=== PATIENT | female | born 1965 ===

== ENCOUNTER 2017-07-01 10:54 | Observation (INO) | payer MEDICARE, OTHER ==
[2017-07-01] MEDS ORDERED: Albuterol-Ipratrop 3 mg / 0.5 (3 ml) UD INH STA (11:39)
[2017-07-01] MEDS ORDERED: Albuterol-Ipratrop 3 mg / 0.5 (3 ml) UD ONE (11:50)
--- NOTE | 2017-07-01 12:05 | C.PDOC ---
History Of Present Illness 51 year old female with Hx of asthma presents to the ED c/o dry cough with sweats and post tussive chest discomfort and back pain for the past week. Patient reports she was been hospitalized in the past because of her asthma. Patient denies fever, nausea, vomit, dizziness, weakness, numbness. Chief Complaint (Nursing): Shortness Of Breath History Per: Patient History/Exam Limitations: no limitations Onset/Duration Of Symptoms: Days Current Symptoms Are (Timing): Still Present Quality: Tightness Exacerbating Factor(s): Coughing Associated Symptoms: Sweating, Chest Pain, Other (Dry cough). denies: Fever, Ankle/Leg Swelling, Dizziness Recent travel outside of the [place]: No Additional History Per: Patient Past Medical History Reviewed: Historical Data, Nursing Documentation, Vital Signs Vital Signs: Last Vital Signs Temp 98 F 07/01/17 15:00 Pulse 108 H 07/01/17 15:00 Resp 20 07/01/17 16:42 BP 114/73 07/01/17 15:00 Pulse Ox 95 07/01/17 16:42 - Medical History PMH: Asthma, Diabetes, Hypercholesterolemia Surgical History: Cholecystectomy Family History: States: Unknown Family Hx - Social History Hx Tobacco Use: No Hx Alcohol Use: Yes Hx Substance Use: No - Immunization History Hx Tetanus Toxoid Vaccination: No Hx Influenza Vaccination: No Hx Pneumococcal Vaccination: No Review Of Systems Constitutional: Positive for: Sweats. Negative for: Fever Cardiovascular: Positive for: Chest Pain (Post tussive). Negative for: Palpitations Respiratory: Positive for: Cough (Dry) Gastrointestinal: Negative for: Nausea, Vomiting, Abdominal Pain Musculoskeletal: Positive for: Back Pain (Post tussive) Skin: Negative for: Rash Neurological: Negative for: Weakness, Numbness Physical Exam - Physical Exam Appears: Non-toxic, No Acute Distress Skin: Normal Color, Warm, Dry Head: Atraumatic, Normacephalic Oral Mucosa: Moist Neck: Normal ROM, Supple Chest: Symmetrical Cardiovascular: Rhythm Regular, No Murmur Respiratory: No Rales, No Rhonchi, Wheezing (B/L expiratory) Gastrointestinal/Abdominal: Soft, No Tenderness Extremity: Normal ROM, No Pedal Edema, No Calf Tenderness, No Swelling Neurological/Psych: Oriented x3, Normal Speech, Normal Cognition Gait: Steady ED Course And Treatment - Laboratory Results Result Diagrams: 07/01/17 12:15 12/05/17 12:15 ECG: Interpreted By Me, Viewed By Me ECG Rhythm: Sinus Tachycardia Interpretation Of ECG: EKG sinus tachycardia at 108 with normal axis, normal rhythm Rate From EC O2 Sat by Pulse Oximetry: 100 (On RA) Pulse Ox Interpretation: Normal - Radiology CXR: Interpreted by Me, Viewed By Me CXR Interpretation: Yes: No Acute Disease. No: Infiltrates Medical Decision Making Medical Decision Making: Plan: * Blood work ordered * EKG, CXR ordered * albuterol 3 ml INH given * Solumedrol 125 mg IVP given * Blood culture collected * Nebulizer treatment On reevaluation pt states not feeling well, still wheezing B/L, will be admitted to the floor. Spoke with hospitalist c python developer, Dr. Piña for consultation regarding the case and will come down to check on pt for possible admission. Disposition - Disposition Disposition: HOSPITALIZED Disposition Time: 13:30 Condition: STABLE - Clinical Impression Clinical Impression: Asthma exacerbation - Scribe Statement The provider has reviewed the documentation as recorded by the Scribe Chi Bell All medical record entries made by the Scribe were at my direction and personally dictated by me. I have reviewed the chart and agree that the record accurately reflects my personal performance of the history, physical exam, medical decision making, and the department course for this patient. I have also personally directed, reviewed, and agree with the discharge instructions and disposition.
--- NOTE | 2017-07-01 12:15 | RAD ---
HISTORY: r/o infiltrate COMPARISON: 01/12/2016 FINDINGS: LUNGS: No active pulmonary disease. PLEURA: No significant pleural effusion identified, no pneumothorax apparent. CARDIOVASCULAR: Normal. OSSEOUS STRUCTURES: Minimal thoracic spondylosis. Minimal bilateral shoulder arthrosis Cartilaginous junctional hypertrophic changes -1st rib VISUALIZED UPPER ABDOMEN: Normal. OTHER FINDINGS: None. IMPRESSION: No active disease.
[2017-07-01 12:21] LABS: BASO % 0.4 % (0.0-2.0); EOS # 0.5 K/uL (0.0-0.7); EOS % 6.6 % (0.0-4.0); HEMATOCRIT 42.2 % (34.0-47.0); LYMPH # 2.3 K/uL (1.0-4.3); LYMPH % 30.7 % (20.0-40.0); MEAN CELL VOLUME 90.5 fL (81.0-99.0); MEAN CORPUSCULAR HEMOGLOBIN 30.8 pg (27.0-31.0); MEAN CORPUSCULAR HGB CONC 34.1 g/dL (33.0-37.0); MEAN PLATELET VOLUME 8.7 fL (7.2-11.7); MONO # 0.4 K/uL (0.0-0.8); MONO % 5.5 % (0.0-10.0); NRBC % 0.1 % (0.0-2.0); RED CELL DISTRIBUTION WIDTH 12.2 % (11.5-14.5); WHITE BLOOD COUNT 7.6 K/uL (4.8-10.8)
[2017-07-01] MEDS ORDERED: Magnesium Sulfate 1 gm in D5W 1 GM/100 ML BAG IVPB ONE ×2 (12:23→13:04)
[2017-07-01] MEDS: Magnesium Sulfate 1 gm in D5W 1 GM/100 ML BAG IVPB SCH ×4 (12:26→17:54)
[2017-07-01 12:35] LABS: ALB/GLOB RATIO 1.3 (1.0-2.1); ALKALINE PHOSPHATASE 267 U/L (38-126); ALT/SGPT 42 U/L (9-52); AST/SGOT 19 U/L (14-36); BILIRUBIN,TOTAL 0.4 mg/dL (0.2-1.3); BLOOD UREA NITROGEN 12 mg/dL (7-17); CALCIUM 8.4 mg/dl (8.6-10.4); CARBON DIOXIDE 27 mmol/L (22-30); CHLORIDE 103 mmol/L (98-107); GFR AFRICAN-AMERICAN > 60; GLUCOSE,RANDOM 398 mg/dL (65-105); POTASSIUM 3.8 mmol/L (3.6-5.2); SODIUM 139 mmol/L (132-148); TOTAL PROTEIN 6.8 g/dL (6.3-8.3)
[2017-07-01] MEDS ORDERED: Albuterol 0.083% Inhal Sol (2.5 mg/3 mL) UD INH STA (13:08)
[2017-07-01] MEDS ORDERED: Albuterol 0.083% Inhal Sol (2.5 mg/3 mL) UD ONE (13:15)
[2017-07-01] MEDS ORDERED: Glucagon Recombinant 1 mg Inj IM PRN (14:30)
[2017-07-01] MEDS ORDERED: Dextrose 50% SYRINGE Inj (50 ml) IV PRN (14:30)
--- NOTE | 2017-07-01 15:01 | CP.PCM.HP ---
<Camilo Rosas - Last Filed: 07/01/17 15:02> History of Present Illness - History of Present Illness History of Present Illness: Admission Note for Medicine for Dr. Piña Hospitalist Service--Camilo Rosas PGY2--All management as per Dr. Piña CC: SOB This patient is a 51yo F w/ a PMhx of Moderate Persistant Asthma, and DM on Insulin w/ previous A1C she states was "around 11", who is coming in for SOB for 1 week time. She states she is compliant with all of her medicines, but she would previously take 40mg PO prednisone when she "feels a flare" and had run out of his medication for the past month. Patient states she has a lot of stress at home, and the change in weather as well seems to have exacerbated her symptoms. She denies smoking. Denies pets in the house or other recent allergens. Has never been intubated; this past year this is her first admission for asthma but does frequently come to the ER with SOB and is sent home. She admits to some chills and phlegm at home, that is exacerbated by a deep breath for which she has not found relief from. Denies fevers, CP, abdominal pain, N/V/ D, dysuria/freq/urg or lower extremity pain/weakness/swelling. PMhx: As above Surgeries: Gallbladder removal Allergies: Denies Meds: Advair 250, Crestor 20mg, Glipizide 5, Lantus 40 at night, Metformin 500 BID, Proventil PRN, Prednisone 40mg whenever she feels like it FamHx: throat cancer mom and aunt (both heavy smokers), HTN, DM, CAD/[place] in 60's leading to Social: Denies smoking/drinking/illicit drug use, ambulates by self without cane , works multimedia technician, independent in all IADL and ADL Present on Admission - Present on Admission Any Indicators Present on Admission: No History of DVT/PE: No History of Uncontrolled Diabetes: Yes Urinary Catheter: No Decubitus Ulcer Present: No Review of Systems - Constitutional Constitutional: As Per HPI - EENT Eyes: As Per HPI Ears: As Per HPI - Breasts Breasts: As Per HPI - Cardiovascular Cardiovascular: As Per HPI - Respiratory Respiratory: As Per HPI - Gastrointestinal Gastrointestinal: As Per HPI - Genitourinary Genitourinary: As Per HPI Past Patient History - Infectious Disease Hx of Infectious Diseases: None - Tetanus Immunizations Tetanus Immunization: Unknown - Past Medical History & Family History Past Medical History?: Yes Past Family History: Reviewed and not pertinent - Past Social History Smoking Status: Never Smoked - CARDIAC Hx Hypercholesterolemia: Yes - PULMONARY Hx Asthma: Yes - ENDOCRINE/METABOLIC Hx Diabetes Mellitus Type 1: Yes - PSYCHIATRIC Hx Substance Use: No - SURGICAL HISTORY Hx Cholecystectomy: Yes - ANESTHESIA Hx Anesthesia: Yes Hx Anesthesia Reactions: No Hx Malignant Hyperthermia: No Meds Allergies/Adverse Reactions: Allergies Allergy/AdvReac Type Severity Reaction Status Date / Time No Known Allergies Allergy Verified 10/14/14 10:55 Physical Exam - Constitutional Appears: Well, Non-toxic - Head Exam Head Exam: ATRAUMATIC - Eye Exam Eye Exam: EOMI - ENT Exam ENT Exam: Mucous Membranes Moist - Neck Exam Neck exam: Positive for: Full Rom, Normal Inspection. Negative for: Lymphadenopathy - Respiratory Exam Respiratory Exam: Accessory Muscle Use, Wheezes, NORMAL BREATHING PATTERN. absent: Chest Wall Tenderness, Decreased Breath Sounds, Clear to Auscultation Bilateral, Prolonged Expiratory Phase, Respiratory Distress, Stridor - Cardiovascular Exam Cardiovascular Exam: Tachycardia, +S1, +S2. absent: REGULAR RHYTHM, Rubs, +S4, Systolic Murmur - GI/Abdominal Exam GI & Abdominal Exam: Normal Bowel Sounds, Soft. absent: Tenderness - Extremities Exam Extremities exam: Positive for: full ROM. Negative for: calf tenderness, pedal edema, tenderness - Back Exam Back exam: NORMAL INSPECTION. absent: CVA tenderness (L), CVA tenderness (R) - Neurological Exam Neurological exam: Alert, CN II-XII Intact (speaking in full sentences not short of breath during speech), Normal Gait, Oriented x3, Reflexes Normal - Psychiatric Exam Psychiatric exam: Normal Affect - Skin Skin Exam: Warm Results - Vital Signs Recent Vital Signs: Last Vital Signs Temp 98.6 F 07/01/17 14:36 Pulse 105 H 07/01/17 14:36 Resp 22 07/01/17 14:36 BP 105/67 07/01/17 14:36 Pulse Ox 98 07/01/17 14:36 - Labs Result Diagrams: 07/01/17 12:15 07/01/17 12:15 Labs: Laboratory Results - last 24 hr 12/0507/01/17 07/01/17 12:15 12:15 12:15 WBC 7.6 RBC 4.67 Hgb 14.4 Hct 42.2 MCV 90.5 D MCH 30.8 MCHC 34.1 RDW 12.2 Plt Count 265 MPV 8.7 Neut % (Auto) 56.8 Lymph % (Auto) 30.7 [place] % (Auto) 5.5 Eos % (Auto) 6.6 H Baso % (Auto) 0.4 Neut # 4.3 Lymph # 2.3 [place] # 0.4 Eos # 0.5 Baso # 0.0 Sodium 139 Potassium 3.8 Chloride 103 Carbon Dioxide 27 Anion Gap 13 BUN 12 Creatinine 0.6 L Est GFR ( Amer) > 60 Est GFR (Non-Af Amer) > 60 Random Glucose 398 H Calcium 8.4 L Total Bilirubin 0.4 AST 19 ALT 42 Alkaline Phosphatase 267 H Troponin I < 0.0120 Total Protein 6.8 Albumin 3.9 Globulin 2.9 Albumin/Globulin Ratio 1.3 Influenza Typ A,B (EIA) Negative for flu a/b Assessment & Plan - Assessment and Plan (Free Text) Assessment: 51yo F admitted for Asthma Exacerbation Asthma Exacerbation; Moderate Persistent Asthma -no hx of intubation/ICU admissions; patient speaking in full sentences and being admitted to regular medical floor -c/w duoneb as needed; will give 2 more bags of mag once on floor -supplemental O2 if O2 below 92% on RA -IV Solumedrol 40mg BID -Fluticasone/Salumeterol BID inhaler -will add monteleukast HS 10mg PO -Consult Pulmonology; Dr. Banks; appreciate recs; patient will need f/u as outpatient as well for pulmonary fxn testing Bronchitis; acute -will start Azithromycin 500mg 07/01, c/w 250mg PO for 4 more days DM; on insulin; uncontrolled -patient takes steroids intermittently which exacerbates elevations in blood sugar -patient reported HbA1C of 12 in past; none on record f/u AM tomorrow -patient was not on aspirin or EFRAIN; added as necessary in diabetes prophylaxis -c/w patients statin HS -Lantus 40mg HS, Insulin sliding scale low ACHS, metoformin 500mg BID (will increase to 1000mg BID), Glipizide 5mg daily -Hypoglycemia protocol Proph -Protonix 40IV daily -Lovenox 40mg SC daily -f/u HbA1C, TSH/Free T4, Lipid Panel Case Discussed with Dr. Terrence Rosas PGY2 Family Medicine Decision To Admit - Pt Status Changed To: Hospital Disposition Of: Observation - . Bed Request Type: Regular Admitting Physician: Ronit Piña <Ronit Piña - Last Filed: 07/01/17 16:41> Results - Vital Signs Recent Vital Signs: Last Vital Signs Temp 98.6 F 07/01/17 14:36 Pulse 105 H 07/01/17 14:36 Resp 22 07/01/17 14:36 BP 105/67 07/01/17 14:36 Pulse Ox 98 07/01/17 14:36 - Labs Result Diagrams: 07/01/17 12:15 07/01/17 12:15 Labs: Laboratory Results - last 24 hr 07/01/17 07/01/17 07/01/17 12:15 12:15 12:15 WBC 7.6 RBC 4.67 Hgb 14.4 Hct 42.2 MCV 90.5 D MCH 30.8 MCHC 34.1 RDW 12.2 Plt Count 265 MPV 8.7 Neut % (Auto) 56.8 Lymph % (Auto) 30.7 [place] % (Auto) 5.5 Eos % (Auto) 6.6 H Baso % (Auto) 0.4 Neut # 4.3 Lymph # 2.3 [place] # 0.4 Eos # 0.5 Baso # 0.0 Sodium 139 Potassium 3.8 Chloride 103 Carbon Dioxide 27 Anion Gap 13 BUN 12 Creatinine 0.6 L Est GFR ( Amer) > 60 Est GFR (Non-Af Amer) > 60 Random Glucose 398 H Calcium 8.4 L Total Bilirubin 0.4 AST 19 ALT 42 Alkaline Phosphatase 267 H Troponin I < 0.0120 Total Protein 6.8 Albumin 3.9 Globulin 2.9 Albumin/Globulin Ratio 1.3 Influenza Typ A,B (EIA) Negative for flu a/b Attending/Attestation - Attestation I have personally seen and examined this patient.: Yes I have fully participated in the care of the patient.: Yes I have reviewed all pertinent clinical information: Yes Notes (Text): Seen and examined,Alert and oriented x3,talking in full sentences.has wheezing for a week,no fever,Had night sweats.She admits that she is noncompliance with her meds.D/w her about her diabetes and insulin. During her last visit to her primary care she was asked to stop glipizide and start on Novolog 70/30 24units ACB and 12units ACD with Lantus 50units at bedtime. plan discussed with the resident 07/01/17 16:31
[2017-07-01] MEDS ORDERED: (Novolog Mix 70/30) Insulin Aspart/Insulin Aspar 100 units/ml SC SCH (16:30)
--- NOTE | 2017-07-01 16:44 | CP.PCM.CON ---
History of Present Illness - History of Present Illness History of Present Illness: Reason for consultation: Asthma exacerbation 51 y/o F with a PMHx of Asthma, Diabetes, hyperlipidemia and HTN presents with shortness of breath and chest tightness associated with non-productive cough. Patient says she tried her albuterol inhaler but it did not help. Patient says that in the past she would take prednisone when she has an asthma exacerbation but did not have any at home. Patient last took prednisone two weeks ago. Patient reports that she is not always compliant with her medications. Patient reports that she has been hospitalized in the past for asthma but it has been several years. Never intubated. Patient denies any smoking history or smokers in the home. Patient has a dog. Patient reports chills, but denies fevers. Patient denies headaches, nausea, vomiting, abdominal pain, diarrhea, constipation and dysuria. Allergies: NKA PMHx: Asthma, DMII, HTN PSHx: cholecystectomy Meds: Insulin, metformin, Advair, Singulair, Prednisone "when she has an asthma exacerbation." SocialHx: Denies past or current tobacco use. Denies illicit drug use. Drinks socially. FamilyHx: three members of family had throat cancer, multiple members of family have diabetes. Review of Systems - Constitutional Constitutional: Chills - Cardiovascular Cardiovascular: absent: Leg Edema - Respiratory Respiratory: Cough, Dyspnea, Wheezing, Pain with Coughing - Gastrointestinal Gastrointestinal: absent: Constipation, Diarrhea - Genitourinary Genitourinary: absent: Dysuria - Neurological Neurological: Dizziness. absent: Syncope Past Patient History - Infectious Disease Hx of Infectious Diseases: None - Tetanus Immunizations Tetanus Immunization: Unknown - Past Medical History & Family History Past Medical History?: Yes Past Family History: Reviewed and not pertinent - Past Social History Smoking Status: Never Smoked - CARDIAC Hx Hypercholesterolemia: Yes - PULMONARY Hx Asthma: Yes - ENDOCRINE/METABOLIC Hx Diabetes Mellitus Type 1: Yes - PSYCHIATRIC Hx Substance Use: No - SURGICAL HISTORY Hx Cholecystectomy: Yes - ANESTHESIA Hx Anesthesia: Yes Hx Anesthesia Reactions: No Hx Malignant Hyperthermia: No Meds Allergies/Adverse Reactions: Allergies Allergy/AdvReac Type Severity Reaction Status Date / Time No Known Allergies Allergy Verified 10/14/14 10:55 - Medications Medications: Current Medications Acetaminophen (Tylenol 325mg Tab) 650 mg PO Q6 PRN PRN Reason: Pain, Mild (1-3) Albuterol/Ipratropium (Duoneb 3 Mg/0.5 Mg (3 Ml) Ud) 3 ml INH RQ2 PRN PRN Reason: SOB Aspirin (Ecotrin) 81 mg PO DAILY [facility] Azithromycin (Zithromax) 250 mg PO DAILY [facility] Dextrose (Dextrose 50% Inj) 0 ml IV STAT PRN; Protocol PRN Reason: Hypoglycemia Protocol Dextrose (Glutose 15) 0 gm PO ONCE PRN; Protocol PRN Reason: Hypoglycemia Protocol Enoxaparin Sodium (Lovenox) 40 mg SC DAILY [facility] Glucagon (Glucagen Diagnostic Kit) 0 mg IM STAT PRN; Protocol PRN Reason: Hypoglycemia Protocol Insulin Aspart (Novolog) 0 unit SC ACHS [facility] PRN Reason: Protocol Insulin Aspart (Novolog Mix 70/30 (70/30 Units/Ml)) 10 units SC ACBD [facility] Insulin Glargine (Lantus) 50 unit SC HS [facility] Lisinopril (Zestril) 2.5 mg PO DAILY [facility] Metformin HCl (Glucophage) 1,000 mg PO BID [facility] Methylprednisolone (Solu-Medrol) 40 mg IVP Q12H [facility] Montelukast Sodium (Singulair) 10 mg PO HS [facility] Ondansetron HCl (Zofran Inj) 4 mg IVP Q6H PRN PRN Reason: Nausea/Vomiting Pantoprazole Sodium (Protonix Ec Tab) 40 mg PO DAILY [facility] Rosuvastatin Calcium (Crestor) 20 mg PO HS [facility] Fluticasone/Salmeterol (Advair Diskus 250/50) 1 puff INH DAILY [facility] Tramadol HCl (Ultram) 50 mg PO TID PRN PRN Reason: Pain, severe (8-10) Results - Vital Signs Recent Vital Signs: Last Vital Signs Temp 98.6 F 07/01/17 14:36 Pulse 105 H 07/01/17 14:36 Resp 22 07/01/17 14:36 BP 105/67 07/01/17 14:36 Pulse Ox 98 07/01/17 14:36 - Labs Result Diagrams: 07/02/17 07:10 07/02/17 07:10 Labs: Laboratory Results - last 24 hr 07/01/17 07/01/17 07/01/17 12:15 12:15 12:15 WBC 7.6 RBC 4.67 Hgb 14.4 Hct 42.2 MCV 90.5 D MCH 30.8 MCHC 34.1 RDW 12.2 Plt Count 265 MPV 8.7 Neut % (Auto) 56.8 Lymph % (Auto) 30.7 [place] % (Auto) 5.5 Eos % (Auto) 6.6 H Baso % (Auto) 0.4 Neut # 4.3 Lymph # 2.3 [place] # 0.4 Eos # 0.5 Baso # 0.0 Sodium 139 Potassium 3.8 Chloride 103 Carbon Dioxide 27 Anion Gap 13 BUN 12 Creatinine 0.6 L Est GFR ( Amer) > 60 Est GFR (Non-Af Amer) > 60 Random Glucose 398 H Calcium 8.4 L Total Bilirubin 0.4 AST 19 ALT 42 Alkaline Phosphatase 267 H Troponin I < 0.0120 Total Protein 6.8 Albumin 3.9 Globulin 2.9 Albumin/Globulin Ratio 1.3 Influenza Typ A,B (EIA) Negative for flu a/b Assessment & Plan (1) Asthma exacerbation Status: Acute Comment: continue IV steroids, nebulizer treatment. Peak flow every shift. Pulmonary function test. Allergy test
[2017-07-01] MEDS: (Novolog) Insulin Aspart, Recombinant 100 u/ml 10 ml vial SC SCH ×2 (16:53→21:38)
[2017-07-01 16:59] VITALS: RESP 20
[2017-07-01] MEDS ORDERED: (Lantus) Insulin Glargine, Recombinant SC SCH (20:00)
[2017-07-01] MEDS: (Lantus) Insulin Glargine, Recombinant SC SCH (21:37)
[2017-07-02] MEDS ORDERED: guaiFENesin-Codeine 100-10mg/5ml Syrup (10ml) UD PO ONE (04:59)
[2017-07-02] MEDS: Albuterol-Ipratrop 3 mg / 0.5 (3 ml) UD INH PRN ×2 (07:42→19:46)
[2017-07-02] MEDS: (Novolog) Insulin Aspart, Recombinant 100 u/ml 10 ml vial SC SCH ×4 (08:09→21:37)
[2017-07-02] MEDS: (Novolin 70/30) NPH/Regular 70/30 Units/ml 10 ml vial SC SCH (08:12)
[2017-07-02 08:23] LABS: THYROID STIMULATING HORMONE 0.48 mIU/L (0.46-4.68)
[2017-07-02 08:25] LABS: ALKALINE PHOSPHATASE 191 U/L (38-126); ALT/SGPT 57 U/L (9-52); AST/SGOT 26 U/L (14-36); BILIRUBIN,TOTAL 0.5 mg/dL (0.2-1.3); BLOOD UREA NITROGEN 19 mg/dL (7-17); CALCIUM 9.2 mg/dl (8.6-10.4); CARBON DIOXIDE 30 mmol/L (22-30); CHLORIDE 100 mmol/L (98-107); CHOLESTEROL 221 mg/dL (0-199); GFR AFRICAN-AMERICAN > 60; GLUCOSE,RANDOM 409 mg/dL (65-105); HEMATOCRIT 43.3 % (34.0-47.0); MEAN CELL VOLUME 91.1 fL (81.0-99.0); MEAN PLATELET VOLUME 9.1 fL (7.2-11.7); POTASSIUM 4.9 mmol/L (3.6-5.2); RED CELL DISTRIBUTION WIDTH 12.5 % (11.5-14.5); SODIUM 138 mmol/L (132-148); TOTAL PROTEIN 8.6 g/dL (6.3-8.3)
[2017-07-02] MEDS: Enoxaparin 40 mg Syringe SC SCH (09:58)
[2017-07-02] MEDS: Pantoprazole 40 mg EC Tab PO SCH (09:59)
[2017-07-02] MEDS ORDERED: Fluticasone-Salmeterol 250-50mcg Diskus INH SCH (10:00)
[2017-07-02] MEDS ORDERED: Acetylcysteine 20% 3 ML NEB INH SCH (11:45)
[2017-07-02] MEDS: Acetylcysteine 20% Inhal Soln (4ml) INH SCH (13:20)
[2017-07-02] MEDS: MethylPREDNISolone 40 mg Vial IVP SCH ×2 (14:13→17:47)
--- NOTE | 2017-07-02 16:02 | CP.PCM.PN ---
Subjective - Date & Time of Evaluation Date of Evaluation: 07/02/17 Time of Evaluation: 09:20 - Subjective Subjective: patient seen and examined Breathing much improved Complaining of slight cough Afebrile No chest pain Objective - Vital Signs/Intake and Output Vital Signs (last 24 hours): Temp Pulse Resp BP Pulse Ox 97.8 F 84 20 109/68 97 07/02/17 07:50 07/02/17 09:44 07/02/17 07:50 07/02/17 07:50 07/02/17 07:50 Intake and Output: 07/02/17 07/02/17 06:59 18:59 Intake Total 120 500 Balance 120 500 - Medications Medications: Current Medications Acetaminophen (Tylenol 325mg Tab) 650 mg PO Q6 PRN PRN Reason: Pain, Mild (1-3) Last Admin: 07/02/17 10:07 Dose: 650 mg Acetylcysteine (Acetylcysteine 20%) 4 ml INH RQ6 [facility] Last Admin: 07/02/17 13:20 Dose: Not Given Albuterol/Ipratropium (Duoneb 3 Mg/0.5 Mg (3 Ml) Ud) 3 ml INH RQ2 PRN PRN Reason: SOB Last Admin: 07/02/17 07:42 Dose: 3 ml Aspirin (Ecotrin) 81 mg PO DAILY [facility] Last Admin: 07/02/17 09:57 Dose: 81 mg Azithromycin (Zithromax) 250 mg PO DAILY [facility] Last Admin: 07/02/17 10:00 Dose: 250 mg Dextrose (Dextrose 50% Inj) 0 ml IV STAT PRN; Protocol PRN Reason: Hypoglycemia Protocol Dextrose (Glutose 15) 0 gm PO ONCE PRN; Protocol PRN Reason: Hypoglycemia Protocol Enoxaparin Sodium (Lovenox) 40 mg SC DAILY [facility] Last Admin: 07/02/17 09:58 Dose: 40 mg Glucagon (Glucagen Diagnostic Kit) 0 mg IM STAT PRN; Protocol PRN Reason: Hypoglycemia Protocol Insulin Aspart (Novolog) 0 unit SC ACHS [facility] PRN Reason: Protocol Last Admin: 07/02/17 11:45 Dose: 4 unit Insulin Glargine (Lantus) 50 unit SC HS [facility] Last Admin: 07/01/17 21:37 Dose: 50 units Insulin Human Isoph/Insulin Regular (Novolin 70/30 (70/30 Units/Ml) 10 Ml) 12 units SC ACD [facility] Insulin Human Isoph/Insulin Regular (Novolin 70/30 (70/30 Units/Ml) 10 Ml) 24 units SC ACB [facility] Last Admin: 07/02/17 08:12 Dose: 24 units Lisinopril (Zestril) 2.5 mg PO DAILY [facility] Last Admin: 07/02/17 10:00 Dose: 2.5 mg Metformin HCl (Glucophage) 1,000 mg PO BID [facility] Last Admin: 07/02/17 09:58 Dose: 1,000 mg Methylprednisolone (Solu-Medrol) 40 mg IVP Q12H [facility] Montelukast Sodium (Singulair) 10 mg PO [facility] Last Admin: 07/01/17 21:41 Dose: 10 mg Ondansetron HCl (Zofran Inj) 4 mg IVP Q6H PRN PRN Reason: Nausea/Vomiting Pantoprazole Sodium (Protonix Ec Tab) 40 mg PO DAILY [facility] Last Admin: 07/02/17 09:59 Dose: 40 mg Pneumococcal Polyvalent Vaccine (Pneumovax 23 Vaccine) 0.5 ml IM .ONCE ONE Stop: 07/03/17 10:01 Rosuvastatin Calcium (Crestor) 20 mg PO [facility] Last Admin: 07/01/17 21:37 Dose: 20 mg Fluticasone/Salmeterol (Advair Diskus 250/50) 1 puff INH DAILY [facility] Tramadol HCl (Ultram) 50 mg PO TID PRN PRN Reason: Pain, severe (8-10) - Labs Labs: 07/02/17 07:10 07/02/17 07:10 - Head Exam Head Exam: ATRAUMATIC, NORMOCEPHALIC - Eye Exam Eye Exam: Normal appearance - ENT Exam ENT Exam: Mucous Membranes Moist - Neck Exam Neck Exam: Full ROM, Normal Inspection - Respiratory Exam Respiratory Exam: Clear to Ausculation Bilateral - Cardiovascular Exam Cardiovascular Exam: REGULAR RHYTHM - GI/Abdominal Exam GI & Abdominal Exam: Soft, Normal Bowel Sounds - Extremities Exam Extremities Exam: Full ROM, Normal Inspection - Neurological Exam Neurological Exam: Alert, Oriented x3 Assessment and Plan (1) Asthma exacerbation Assessment & Plan: Continue IV steroids, nebulizer treatment and antibiotics Stitch to by mouth prednisone in a.m. Status: Acute
[2017-07-02] MEDS ORDERED: (Novolin 70/30) NPH/Regular 70/30 Units/ml 10 ml vial SC SCH (16:30)
--- NOTE | 2017-07-02 17:00 | CP.PCM.PN ---
<[place] E - Last Filed: 07/02/17 17:23> Subjective - Date & Time of Evaluation Date of Evaluation: 07/02/17 Time of Evaluation: 07:45 - Subjective Subjective: Medicine Note ( Dr. Piña's service) Patient seen and examined at bedside. Patient states that her symptoms have improved. Patient denies chest pain, SOB, palpitations, nausea, vomiting, fever , chills and cough. During the encounter, patient was counselled on the appropriate use of insulin and it is important for her condition. Objective - Vital Signs/Intake and Output Vital Signs (last 24 hours): Temp Pulse Resp BP Pulse Ox 97.8 F 84 20 102/65 97 07/02/17 07:50 07/02/17 15:42 07/02/17 07:50 07/02/17 15:42 07/02/17 15:42 Intake and Output: 07/02/17 07/02/17 06:59 18:59 Intake Total 120 500 Balance 120 500 - Medications Medications: Current Medications Acetaminophen (Tylenol 325mg Tab) 650 mg PO Q6 PRN PRN Reason: Pain, Mild (1-3) Last Admin: 07/02/17 10:07 Dose: 650 mg Acetylcysteine (Acetylcysteine 20%) 4 ml INH RQ6 [facility] Last Admin: 07/02/17 13:20 Dose: Not Given Albuterol/Ipratropium (Duoneb 3 Mg/0.5 Mg (3 Ml) Ud) 3 ml INH RQ2 PRN PRN Reason: SOB Last Admin: 07/02/17 07:42 Dose: 3 ml Aspirin (Ecotrin) 81 mg PO DAILY [facility] Last Admin: 07/02/17 09:57 Dose: 81 mg Azithromycin (Zithromax) 250 mg PO DAILY [facility] Last Admin: 07/02/17 10:00 Dose: 250 mg Dextrose (Dextrose 50% Inj) 0 ml IV STAT PRN; Protocol PRN Reason: Hypoglycemia Protocol Dextrose (Glutose 15) 0 gm PO ONCE PRN; Protocol PRN Reason: Hypoglycemia Protocol Enoxaparin Sodium (Lovenox) 40 mg SC DAILY [facility] Last Admin: 07/02/17 09:58 Dose: 40 mg Glucagon (Glucagen Diagnostic Kit) 0 mg IM STAT PRN; Protocol PRN Reason: Hypoglycemia Protocol Insulin Aspart (Novolog) 0 unit SC ACHS [facility] PRN Reason: Protocol Last Admin: 07/02/17 11:45 Dose: 4 unit Insulin Glargine (Lantus) 50 unit SC [facility] Last Admin: 07/01/17 21:37 Dose: 50 units Insulin Human Isoph/Insulin Regular (Novolin 70/30 (70/30 Units/Ml) 10 Ml) 12 units SC ACD [facility] Insulin Human Isoph/Insulin Regular (Novolin 70/30 (70/30 Units/Ml) 10 Ml) 24 units SC ACB [facility] Last Admin: 07/02/17 08:12 Dose: 24 units Lisinopril (Zestril) 2.5 mg PO DAILY [facility] Last Admin: 07/02/17 10:00 Dose: 2.5 mg Metformin HCl (Glucophage) 1,000 mg PO BID [facility] Last Admin: 07/02/17 09:58 Dose: 1,000 mg Methylprednisolone (Solu-Medrol) 40 mg IVP Q12H [facility] Montelukast Sodium (Singulair) 10 mg PO [facility] Last Admin: 07/01/17 21:41 Dose: 10 mg Ondansetron HCl (Zofran Inj) 4 mg IVP Q6H PRN PRN Reason: Nausea/Vomiting Pantoprazole Sodium (Protonix Ec Tab) 40 mg PO DAILY [facility] Last Admin: 07/02/17 09:59 Dose: 40 mg Pneumococcal Polyvalent Vaccine (Pneumovax 23 Vaccine) 0.5 ml IM .ONCE ONE Stop: 07/03/17 10:01 Rosuvastatin Calcium (Crestor) 20 mg PO [facility] Last Admin: 07/01/17 21:37 Dose: 20 mg Fluticasone/Salmeterol (Advair Diskus 250/50) 1 puff INH DAILY [facility] Tramadol HCl (Ultram) 50 mg PO TID PRN PRN Reason: Pain, severe (8-10) - Labs Labs: 07/02/17 07:10 07/02/17 07:10 - Constitutional Appears: Well, No Acute Distress - Head Exam Head Exam: ATRAUMATIC - Eye Exam Eye Exam: EOMI, Normal appearance - ENT Exam ENT Exam: Mucous Membranes Moist - Respiratory Exam Respiratory Exam: Wheezes, NORMAL BREATHING PATTERN - Cardiovascular Exam Cardiovascular Exam: REGULAR RHYTHM, +S1, +S2 - GI/Abdominal Exam GI & Abdominal Exam: Soft, Normal Bowel Sounds. absent: Tenderness - Extremities Exam Extremities Exam: Normal Inspection. absent: Calf Tenderness, Pedal Edema - Neurological Exam Neurological Exam: Alert, Awake, Oriented x3 - Psychiatric Exam Psychiatric exam: Normal Affect, Normal Mood - Skin Skin Exam: Normal Color Assessment and Plan (1) Asthma with acute exacerbation Assessment & Plan: Twisting Operator, Dr. Banks---> help appreciated * Management as per recommendation Imaging: Chest X-ray: No active disease Medications: * Duonebs 3ml INH RQ2 prn * Solumedrol 40mg IVP q12h * Advair 1 puff INH daily * Azithromycin 250mg PO daily * Singular 10mg PO HS Status: Acute (2) Bronchitis Assessment & Plan: Twisting OperatorDr. Banks---> help appreciated Medications: * Azithromycin 250mg PO daily Status: Acute (3) Uncontrolled diabetes mellitus Assessment & Plan: HgbA1C: 11.7 Accuchecks Management: * Lantus 50 units HS * Novolin 70/30 24 units SC SCB * Novolin 70/30 12 units SC ACD * Low dose sliding scale * Lisinopril 2.5mg PO daily * Hypoglycemia protocol Status: Acute (4) Hyperlipidemia Status: Acute (5) Hyperlipidemia associated with type 2 diabetes mellitus Assessment & Plan: Lipid Panel: TGL: 113, LDL: 136, Chol: 221, HDL: 62 Medication: * Crestor 20mg PO HS Status: Acute (6) Prophylactic measure Assessment & Plan: GI: Protonix 40IV daily DVT: Lovenox 40mg SC daily Status: Acute <Ronit Piña - Last Filed: 07/02/17 18:03> Objective - Vital Signs/Intake and Output Vital Signs (last 24 hours): Temp Pulse Resp BP Pulse Ox 97.8 F 84 20 102/65 97 07/02/17 07:50 07/02/17 15:42 07/02/17 07:50 07/02/17 15:42 07/02/17 15:42 Intake and Output: 07/02/17 07/02/17 06:59 18:59 Intake Total 120 500 Balance 120 500 - Medications Medications: Current Medications Acetaminophen (Tylenol 325mg Tab) 650 mg PO Q6 PRN PRN Reason: Pain, Mild (1-3) Last Admin: 07/02/17 10:07 Dose: 650 mg Acetylcysteine (Acetylcysteine 20%) 4 ml INH RQ6 [facility] Last Admin: 07/02/17 13:20 Dose: Not Given Albuterol/Ipratropium (Duoneb 3 Mg/0.5 Mg (3 Ml) Ud) 3 ml INH RQ2 PRN PRN Reason: SOB Last Admin: 07/02/17 07:42 Dose: 3 ml Aspirin (Ecotrin) 81 mg PO DAILY [facility] Last Admin: 07/02/17 09:57 Dose: 81 mg Azithromycin (Zithromax) 250 mg PO DAILY [facility] Last Admin: 07/02/17 10:00 Dose: 250 mg Dextrose (Dextrose 50% Inj) 0 ml IV STAT PRN; Protocol PRN Reason: Hypoglycemia Protocol Dextrose (Glutose 15) 0 gm PO ONCE PRN; Protocol PRN Reason: Hypoglycemia Protocol Enoxaparin Sodium (Lovenox) 40 mg SC DAILY [facility] Last Admin: 07/02/17 09:58 Dose: 40 mg Glucagon (Glucagen Diagnostic Kit) 0 mg IM STAT PRN; Protocol PRN Reason: Hypoglycemia Protocol Insulin Aspart (Novolog) 0 unit SC ACHS [facility] PRN Reason: Protocol Last Admin: 07/02/17 17:41 Dose: 3 unit Insulin Glargine (Lantus) 50 unit SC HS [facility] Last Admin: 07/01/17 21:37 Dose: 50 units Insulin Human Isoph/Insulin Regular (Novolin 70/30 (70/30 Units/Ml) 10 Ml) 12 units SC ACD [facility] Last Admin: 07/02/17 17:40 Dose: 12 units Insulin Human Isoph/Insulin Regular (Novolin 70/30 (70/30 Units/Ml) 10 Ml) 24 units SC ACB [facility] Last Admin: 07/02/17 08:12 Dose: 24 units Lisinopril (Zestril) 2.5 mg PO DAILY [facility] Last Admin: 07/02/17 10:00 Dose: 2.5 mg Metformin HCl (Glucophage) 1,000 mg PO BID [facility] Last Admin: 07/02/17 17:36 Dose: 1,000 mg Methylprednisolone (Solu-Medrol) 40 mg IVP Q12H [facility] Last Admin: 07/02/17 17:47 Dose: 40 mg Montelukast Sodium (Singulair) 10 mg PO HS [facility] Last Admin: 07/01/17 21:41 Dose: 10 mg Ondansetron HCl (Zofran Inj) 4 mg IVP Q6H PRN PRN Reason: Nausea/Vomiting Pantoprazole Sodium (Protonix Ec Tab) 40 mg PO DAILY [facility] Last Admin: 07/02/17 09:59 Dose: 40 mg Pneumococcal Polyvalent Vaccine (Pneumovax 23 Vaccine) 0.5 ml IM .ONCE ONE Stop: 07/03/17 10:01 Rosuvastatin Calcium (Crestor) 20 mg PO HS [facility] Last Admin: 07/01/17 21:37 Dose: 20 mg Fluticasone/Salmeterol (Advair Diskus 250/50) 1 puff INH DAILY [facility] Tramadol HCl (Ultram) 50 mg PO TID PRN PRN Reason: Pain, severe (8-10) - Labs Labs: 07/02/17 07:10 07/02/17 07:10 Attending/Attestation - Attestation I have personally seen and examined this patient.: Yes I have fully participated in the care of the patient.: Yes I have reviewed all pertinent clinical information, including history, physical exam and plan: Yes Notes (Text): Seen and examined Patient has wheezing,feels better.Patient was explained about the complication of poorly controlled diabetes mellitus including stroke,neuropathy,renal failure and heart disease .She was asked to check sugar and take her insulin as recommended by her physician. I agree with the documentation of the assessment and the plan of the resident
[2017-07-02] MEDS: (Lantus) Insulin Glargine, Recombinant SC SCH (21:41)
[2017-07-03] MEDS: MethylPREDNISolone 40 mg Vial IVP SCH ×2 (02:53→14:12)
[2017-07-03] MEDS: Acetylcysteine 20% Inhal Soln (4ml) INH SCH ×3 (02:58→13:12)
[2017-07-03] MEDS: (Novolog) Insulin Aspart, Recombinant 100 u/ml 10 ml vial SC SCH ×2 (08:04→11:55)
[2017-07-03 08:43] LABS: HEMATOCRIT 45.4 % (34.0-47.0); MEAN CELL VOLUME 91.3 fL (81.0-99.0); MEAN PLATELET VOLUME 8.7 fL (7.2-11.7); RED CELL DISTRIBUTION WIDTH 12.3 % (11.5-14.5); WHITE BLOOD COUNT 16.4 K/uL (4.8-10.8)
[2017-07-03 09:25] LABS: ALKALINE PHOSPHATASE 164 U/L (38-126); ALT/SGPT 50 U/L (9-52); AST/SGOT 17 U/L (14-36); BILIRUBIN,TOTAL 0.4 mg/dL (0.2-1.3); BLOOD UREA NITROGEN 20 mg/dL (7-17); CALCIUM 8.7 mg/dl (8.6-10.4); CARBON DIOXIDE 29 mmol/L (22-30); CHLORIDE 98 mmol/L (98-107); GFR AFRICAN-AMERICAN > 60; GLUCOSE,RANDOM 357 mg/dL (65-105); MAGNESIUM 1.8 mg/dL (1.6-2.3); PHOSPHOROUS 5.1 mg/dL (2.5-4.5); POTASSIUM 4.1 mmol/L (3.6-5.2); SODIUM 138 mmol/L (132-148); TOTAL PROTEIN 8.5 g/dL (6.3-8.3)
[2017-07-03] MEDS ORDERED: Pneumococcal 23-Valent Vaccine IM ONE (10:00)
[2017-07-03] MEDS: Pantoprazole 40 mg EC Tab PO SCH (10:02)
[2017-07-03] MEDS: (Novolin 70/30) NPH/Regular 70/30 Units/ml 10 ml vial SC SCH (10:03)
[2017-07-03] MEDS: Enoxaparin 40 mg Syringe SC SCH (10:03)
--- NOTE | 2017-07-03 15:16 | CP.PCM.DIS ---
Provider - Provider Date of Admission: 07/01/17 14:17 Attending physician: Ronit Piña MD Time Spent in preparation of Discharge (in minutes): 35 Diagnosis - Discharge Diagnosis (1) Asthma with acute exacerbation Status: Acute (2) Bronchitis Status: Acute (3) Uncontrolled diabetes mellitus Status: Acute (4) Hyperlipidemia Status: Acute (5) Hyperlipidemia associated with type 2 diabetes mellitus Status: Acute (6) Prophylactic measure Status: Acute Hospital Course - Lab Results Lab Results: Micro Results 07/01/17 11:45 Blood Blood Culture - Preliminary NO GROWTH AFTER 24 HOURS 07/01/17 12:15 Blood Blood Culture - Preliminary NO GROWTH AFTER 24 HOURS Most Recent Lab Values WBC 16.4 K/uL (4.8-10.8) H 07/03/17 08:16 RBC 4.97 Mil/uL (3.80-5.20) 07/03/17 08:16 Hgb 15.4 g/dL (11.0-16.0) 07/03/17 08:16 Hct 45.4 % (34.0-47.0) 07/03/17 08:16 MCV 91.3 fL (81.0-99.0) 07/03/17 08:16 MCH 31.0 pg (27.0-31.0) 07/03/17 08:16 MCHC 34.0 g/dL (33.0-37.0) 07/03/17 08:16 RDW 12.3 % (11.5-14.5) 07/03/17 08:16 Plt Count 300 K/uL (130-400) 07/03/17 08:16 MPV 8.7 fL (7.2-11.7) 07/03/17 08:16 Neut % (Auto) 56.8 % (50.0-75.0) 07/01/17 12:15 Lymph % (Auto) 30.7 % (20.0-40.0) 07/01/17 12:15 [place] % (Auto) 5.5 % (0.0-10.0) 07/01/17 12:15 Eos % (Auto) 6.6 % (0.0-4.0) H 07/01/17 12:15 Baso % (Auto) 0.4 % (0.0-2.0) 07/01/17 12:15 Neut # 4.3 K/uL (1.8-7.0) 07/01/17 12:15 Lymph # 2.3 K/uL (1.0-4.3) 07/01/17 12:15 [place] # 0.4 K/uL (0.0-0.8) 07/01/17 12:15 Eos # 0.5 K/uL (0.0-0.7) 07/01/17 12:15 Baso # 0.0 K/uL (0.0-0.2) 07/01/17 12:15 Sodium 138 mmol/L (132-148) 07/03/17 08:16 Potassium 4.1 mmol/L (3.6-5.2) 07/03/17 08:16 Chloride 98 mmol/L (98-107) 07/03/17 08:16 Carbon Dioxide 29 mmol/L (22-30) 07/03/17 08:16 Anion Gap 14 (10-20) 07/03/17 08:16 BUN 20 mg/dL (7-17) H 07/03/17 08:16 Creatinine 0.5 mg/dL (0.7-1.2) L 07/03/17 08:16 Est GFR ( Amer) > 60 07/03/17 08:16 Est GFR (Non-Af Amer) > 60 07/03/17 08:16 POC Glucose (mg/dL) 344 mg/dL (65-110) H 07/03/17 11:28 Random Glucose 357 mg/dL (65-105) H 07/03/17 08:16 Hemoglobin A1c 11.7 % (4.2-6.5) H 07/02/17 07:10 Calcium 8.7 mg/dl (8.6-10.4) 07/03/17 08:16 Phosphorus 5.1 mg/dL (2.5-4.5) H 07/03/17 08:16 Magnesium 1.8 mg/dL (1.6-2.3) 07/03/17 08:16 Total Bilirubin 0.4 mg/dL (0.2-1.3) 07/03/17 08:16 AST 17 U/L (14-36) 07/03/17 08:16 ALT 50 U/L (9-52) 07/03/17 08:16 Alkaline Phosphatase 164 U/L (38-126) H 07/03/17 08:16 Troponin I < 0.0120 ng/mL (0.00-0.120) 07/01/17 12:15 Total Protein 8.5 g/dL (6.3-8.3) H 07/03/17 08:16 Albumin 4.1 g/dL (3.5-5.0) 07/03/17 08:16 Globulin 4.3 gm/dL (2.2-3.9) H 07/03/17 08:16 Albumin/Globulin Ratio 1.0 (1.0-2.1) 07/03/17 08:16 Triglycerides 113 mg/dL (0-149) 07/02/17 07:10 Cholesterol 221 mg/dL (0-199) H 07/02/17 07:10 LDL Cholesterol Direct 136 mg/dL (0-129) H 07/02/17 07:10 HDL Cholesterol 62 mg/dL (30-70) 07/02/17 07:10 Free T4 0.91 ng/dL (0.78-2.19) 07/02/17 07:10 TSH 3rd Generation 0.48 mIU/L (0.46-4.68) 07/02/17 07:10 Influenza Typ A,B (EIA) Negative for flu a/b (NEGATIVE) 07/01/17 12:15 - Hospital Course Hospital Course: HPI ( As per admission): This patient is a 51yo F w/ a PMhx of Moderate Persistant Asthma, and DM on Insulin w/ previous A1C she states was "around 12", who is coming in for SOB for 1 week time. She states she is compliant with all of her medicines, but she would previously take 40mg PO prednisone when she "feels a flare" and had run out of his medication for the past month. Patient states she has a lot of stress at home, and the change in weather as well seems to have exacerbated her symptoms. She denies smoking. Denies pets in the house or other recent allergens. Has never been intubated; this past year this is her first admission for asthma but does frequently come to the ER with SOB and is sent home. She admits to some chills and phlegm at home, that is exacerbated by a deep breath for which she has not found relief from. Denies fevers, CP, abdominal pain, N/V/ D, dysuria/freq/urg or lower extremity pain/weakness/swelling. Hospital Course: Patient was admitted with the diagnosis of Asthma Exacerbation. Hot Head Machine Operator, Dr. Banks, was consulted on 07/01/17 with the recommendation of continuing IV steroids and nebulizer treatment. Patient was again seen on 07/02/17 and reported improved symptoms for her shortness of breath. In addition, patient admitted to non-compliance of her insulin medication. She was counselled on the appropriate use of insulin and complications if she were not to remain compliant such as stroke, neuropathy, renal failure, and heart disease. Patient' s HgbA1C was 11.7. Patient's condition has improved today compared to when she was admitted. During the course of admission, patient had no acute issues. Patient has been deemed stable for discharge upon clearance by her medical team and was discharge with appropriate instructions and medications. Pertinent Imaging: Chest X-ray: No active disease This is a summary of event. For a complete course, please refer to the medical records. Discharge Exam - Head Exam Head Exam: ATRAUMATIC, NORMAL INSPECTION - Eye Exam Eye Exam: EOMI, Normal appearance - ENT Exam ENT Exam: Mucous Membranes Moist - Respiratory Exam Respiratory Exam: Wheezes, NORMAL BREATHING PATTERN Additional comments: Very mild diffuse expiratory wheezing - Cardiovascular Exam Cardiovascular Exam: REGULAR RHYTHM, +S1, +S2 - GI/Abdominal Exam GI & Abdominal Exam: Normal Bowel Sounds, Soft. absent: Tenderness - Extremities Exam Extremities exam: normal inspection - Neurological Exam Neurological exam: Alert, Oriented x3 - Psychiatric Exam Psychiatric exam: Normal Affect - Skin Skin Exam: Normal Color Discharge Plan - Discharge Medications Prescriptions: Albuterol/Ipratropium [Duoneb 3 MG/3 Ml-0.5 MG/3 Ml 3 Ml] 1 ea IH PRN PRN 30 Days #1 neb PRN Reason: Wheezing Azithromycin [Zithromax] 250 mg PO DAILY 5 Days #5 tab Montelukast [Singulair] 10 mg PO HS 30 Days #30 tab - Follow Up Plan Condition: STABLE Disposition: HOME/ ROUTINE Instructions: Azithromycin (By mouth), Ipratropium/Albuterol (By breathing), Montelukast (By mouth), Asthma (DC) Additional Instructions: Please discharge patient as per Dr. Piña Please start the new medications: 1. Medrol dospak ( Take as directed) 2. Singular 10mg PO HS 3. Lisinopril 2.5mg PO daily 4. Azithromycin 250mg PO daily for 5 days Please resume all your medications as prescribed Please follow up with your PMD on 07/10/17 as scheduled Please follow up with Dr. Banks, Pulmologist within a week [phone] [place] [address], [address] [phone] Please return to the hospital or the ED if symptoms worsen or resume Referrals: Jose David Banks MD [Staff Provider] -
[2017-07-03 16:13] VITALS: BP 121/76; PULSE 88; TEMP 97.9; O2SAT 95
--- NOTE | 2017-07-04 12:19 | CARD ---
APPROVED REPORT EKG Measurement Heart [id number] <Conclusion> Sinus tachycardia Cannot rule out Inferior infarct, age undetermined Abnormal ECG
== END 2017-07-03 17:00 | disposition home or self-care (01) ==
LOC: C.ER 10:54 → C.9E 14:17 → C.3T 14:30
PROVIDERS: ADMIT Internal Medicine; ATTEND Internal Medicine
DX: J45.41 Moderate persistent asthma with (acute) exacerbation (principal); J20.9 Acute bronchitis, unspecified; I10 Essential (primary) hypertension; E78.5 Hyperlipidemia, unspecified; I63.9 Cerebral infarction, unspecified; Z79.4 Long term (current) use of insulin; Z85.819 Personal history of malignant neoplasm of unspecified site of lip, oral cavity, and pharynx; E11.65 Type 2 diabetes mellitus with hyperglycemia
CPT/HCPCS: 36415; 71010; 80053; 80061; 82948; 83036; 83735; 84100; 84439; 84443; 84484; 85025; 85027; 87040; 87804; 94150; 94640; 96365; 96374; 97116; 97161; 99285; G0378; G8978; G8979; J1650; J2920; J2930; J3475